=== PATIENT | male | born 1945 | race Caucasian/White ===

== ENCOUNTER → 2020-02-02 | Outpatient (REF) | payer OTHER ==
[2020-02-02 18:26] LABS: IRON (FE) 102 UG/DL (65-175); PERCENT SATURATION 37.1 % (19.7-50.0); TOTAL IRON BINDING CAPACITY 275 UG/DL (250-450); TOTAL PROTEIN 7.2 GM/DL (6.4-8.2)
[2020-02-02 18:37] LABS: FOLATE > 24.0 NG/ML; VITAMIN B12 LEVEL 426 PG/ML
[2020-02-07 12:51] LABS: ALBUMIN 4.39 GM/DL (3.29-5.55); ALPHA-1-GLOBULIN % 4.3 % (2.9-4.9); ALPHA-1-GLOBULINS 0.31 GM/DL (0.17-0.41); ALPHA-2-GLOBULINS 0.57 GM/DL (0.42-0.99); ALPHA-2-GLOBULINS % 7.9 % (7.1-11.8); BETA-1-GLOBULINS 0.34 GM/DL (0.28-0.60); BETA-1-GLOBULINS % 4.7 % (4.7-7.2); BETA-2-GLOBULINS 0.25 GM/DL (0.19-0.55); BETA-2-GLOBULINS % 3.5 % (3.2-6.5); GAMMA GLOBULIN % 18.6 % (11.1-18.8); GAMMA GLOBULINS 1.34 GM/DL (0.65-1.58)
[2020-02-07 13:09] LABS: IMMUNOTYPING SERUM IGG ABNORMAL (NORMAL); IMMUNOTYPING SERUM LAMBDA ABNORMAL (NORMAL)
[2020-02-08 13:07] LABS: FREE KAPPA LIGHT CHAINS SERUM 10.6 mg/L (3.3-19.4); FREE LAMBDA LIGHT CHAINS SERUM 143.5 mg/L (5.7-26.3); KAPPA/LAMBDA RATIO SERUM 0.07 (0.26-1.65)
== END ==
LOC: M LAB REF 17:08
PROVIDERS: ATTEND Internal Medicine Nephrology
DX: D64.9 Anemia, unspecified (principal)

== ENCOUNTER → 2020-04-05 | Outpatient (REF) | payer OTHER ==
[~2020-04-05] MED LIST: FLAX100012 PO; FOLI1TAB11 PO; LISI-538 PO; LOPR1TAB6 PO; PANT40TA29 PO; RA T500C2 PO; VITMTA PO
[2020-04-07 05:07] LABS: FREE KAPPA LIGHT CHAINS URINE 24.39 mg/L (0.63-113.79); FREE LAMBDA LIGHT CHAINS URINE 12.91 mg/L (0.47-11.77); KAPPA/LAMBDA RATIO URINE 1.89 (1.03-31.76)
== END ==
LOC: M LAB REF 11:29
PROVIDERS: ATTEND Specialist
DX: D47.2 Monoclonal gammopathy (principal)

== ENCOUNTER → 2020-06-04 | Outpatient (REF) | payer OTHER ==
[~2020-06-04] MED LIST changes: -LISI-538 PO; +LISI20TA33 PO
[2020-06-05 18:05] LABS: COMPLEMENT C3 106 MG/DL (90-180); COMPLEMENT C4 16 MG/DL (10-40)
[2020-06-05 18:16] LABS: HEPATITIS B SURFACE ANTIBODY NEGATIVE (POSITIVE)
[2020-06-05 18:27] LABS: HEPATITIS B SURFACE ANTIGEN NEGATIVE (NEGATIVE)
[2020-06-05 18:54] LABS: HEPATITIS C VIRUS ABY INDEX 0.1 INDEX (<0.8)
[2020-06-05 18:55] LABS: HEPATITIS B CORE ANTIBODY IGM NEGATIVE (NEGATIVE)
== END ==
LOC: M LAB REF 16:39
PROVIDERS: ATTEND Internal Medicine Nephrology
DX: R80.9 Proteinuria, unspecified (principal)

== ENCOUNTER → 2020-06-07 | Outpatient (REF) | payer OTHER ==
[2020-06-12 16:08] LABS: ANCA-ATYPICAL <1:20 titer (Neg:<1:20); ANTI DS-DNA AB Negative (Negative); ANTI-GLOMERULAR BASEMENT MEMB 6 units (0-20); ANTINUCLEAR ANTIBODIES DIRECT Negative (Negative); CYTOPLASMIC NEUTROP AB ANCA-C <1:20 titer (Neg:<1:20); PERINUCLEAR AB ANCA-P <1:20 titer (Neg:<1:20)
== END ==
LOC: M LAB REF 17:05
PROVIDERS: ATTEND Internal Medicine Nephrology
DX: R80.9 Proteinuria, unspecified (principal)

== ENCOUNTER → 2021-01-07 | Outpatient (REF) | payer OTHER ==
[~2021-01-07] MED LIST changes: +SELE100T PO; +ZINC1TAB2 PO
== END ==
LOC: M LAB REF 16:40
PROVIDERS: ATTEND Internal Medicine Nephrology
DX: N18.2 Chronic kidney disease, stage 2 (mild) (principal)

== ENCOUNTER → 2021-03-04 | Outpatient (CLI) | payer OTHER | LOC: M PLAIMG 10:45 | PROVIDERS: ATTEND Nurse Practitioner | DX: I71.4 Abdominal aortic aneurysm, without rupture (principal) ==

== ENCOUNTER → 2021-06-17 | Outpatient (REF) | payer OTHER | LOC: M LAB REF 16:44 | PROVIDERS: ATTEND Nurse Practitioner Family | DX: N18.31 Chronic kidney disease, stage 3a (principal) ==

== ENCOUNTER 2022-01-03 14:53 | Emergency (ER) | payer MEDICARE, OTHER ==
[~2022-01-03] VITALS: Ht 170.2 cm; Wt 94.5 kg
[2022-01-03 16:30] LABS: BASO % 0.1 % (0.0-1.0); EOS % 0.1 % (0.0-3.0); HEMATOCRIT 41.2 % (42.0-52.0); HEMOGLOBIN 13.4 g/dl (13.5-17.5); LYMPH # 0.4 10^3/uL (1.5-5.0); LYMPH % 3.4 % (24.0-44.0); MEAN CORPUSCULAR HEMOGLOBIN 34.6 pg (27.0-33.0); MEAN CORPUSCULAR HGB CONC 32.5 g/dl (32.0-36.5); MEAN CORPUSCULAR VOLUME 106.5 fl (80.0-96.0); MONO # 0.2 10^3/uL (0.0-0.8); MONO % 2.1 % (2.0-8.0); NEUTROPHILS # 9.6 10^3/uL (1.5-8.5); NEUTROPHILS % 93.1 % (36.0-66.0); PLATELET COUNT, AUTOMATED 194 10^3/uL (150-450); RED BLOOD COUNT 3.87 10^6/uL (4.30-6.10); WHITE BLOOD COUNT 10.3 10^3/uL (4.0-10.0)
[2022-01-03 16:46] LABS: CK-MB VALUE MASS 1.7 NG/ML (<3.6); MB/CK RELATIVE INDEX 2.93 (< OR =4)
[2022-01-03 16:51] LABS: ALBUMIN 3.6 GM/DL (3.2-5.2); ALT/SGPT 48 U/L (12-78); BILIRUBIN,DIRECT < 0.1 MG/DL (0.0-0.2); BILIRUBIN,TOTAL 0.4 MG/DL (0.2-1.0); BLOOD UREA NITROGEN 26 MG/DL (7-18); CALCIUM LEVEL 8.8 MG/DL (8.8-10.2); CARBON DIOXIDE LEVEL 27 MEQ/L (21-32); CHLORIDE LEVEL 106 MEQ/L (98-107); CREATININE FOR GFR 1.07 MG/DL (0.70-1.30); FREE T4 1.04 NG/DL (0.76-1.46); GLOMERULAR FILTRATION RATE > 60.0 (>42); GLUCOSE, FASTING 153 MG/DL (70-100); LIPASE 201 U/L (73-393); NT-PRO BNP 504 PG/ML (<125); POTASSIUM SERUM 4.4 MEQ/L (3.5-5.1); SODIUM LEVEL 138 MEQ/L (136-145); THYROID STIMULATING HORMONE 0.443 uIU/ML (0.358-3.740); TOTAL PROTEIN 6.9 GM/DL (6.4-8.2)
[2022-01-03 18:56] LABS: CK-MB VALUE MASS 1.5 NG/ML (<3.6); MB/CK RELATIVE INDEX 2.42 (< OR =4)
[2022-01-03 22:00] VITALS: BP 176/83
== END 2022-01-03 22:12 | disposition home or self-care (01) ==
LOC: M ED 14:53
DX: R00.2 Palpitations (principal); I49.5 Sick sinus syndrome; I10 Essential (primary) hypertension; Z95.0 Presence of cardiac pacemaker; Z79.899 Other long term (current) drug therapy

== ENCOUNTER → 2022-01-13 | Outpatient (REF) | LOC: M RAD 14:05 | PROVIDERS: ATTEND Physician Assistant Medical | DX: R05.9 Cough, unspecified (principal) ==

== ENCOUNTER → 2022-03-21 | Outpatient (CLI) | payer OTHER ==
[~2022-03-21] MED LIST changes: +AMLO1TAB24; +ATRO1OPD; +B COCAP4 PO; +BRIM0.2S13; +DORZ2SOL4; +EXCETAB32 PO; +METO1TAB7; +NOXI1TAB PO; +PRED10TA2; +PRED1SUS2; +PRED20TA; +VITA400T26 PO; +VITA500C24 PO
== END ==
LOC: M PLAIMG 11:27
PROVIDERS: ATTEND Internal Medicine Cardiovascular Disease
DX: R06.02 Shortness of breath (principal)

== ENCOUNTER → 2022-04-24 | Outpatient (CLI) | payer MEDICARE, OTHER | LOC: M RAD 12:39 | PROVIDERS: ATTEND Internal Medicine Critical Care Medicine | DX: I82.812 Embolism and thrombosis of superficial veins of left lower extremity (principal); R22.40 Localized swelling, mass and lump, unspecified lower limb ==

== ENCOUNTER → 2022-06-16 | Outpatient (REF) | payer OTHER ==
[~2022-06-16] MED LIST changes: +ALBU8.5H; +CHEL50TA3 PO; +EXCETAB44 PO; +IRON325T9 PO; +METH2.5T48; +TURM500T PO; +VALT500T
== END ==
LOC: M LAB REF 17:40
PROVIDERS: ATTEND Internal Medicine Nephrology
DX: C90.00 Multiple myeloma not having achieved remission (principal)

== ENCOUNTER → 2022-09-25 | Outpatient (CLI) | payer MEDICARE, OTHER ==
[~2022-09-25] MED LIST changes: -ATRO1OPD; +ATRO2DRO4
== END ==
LOC: M PLAIMG 12:59
PROVIDERS: ATTEND Nurse Practitioner
DX: C90.00 Multiple myeloma not having achieved remission (principal)
CPT/HCPCS: 77075; G0463

== ENCOUNTER → 2022-12-23 | Outpatient (REF) | payer OTHER | LOC: M SFHCRHEU 12:41 | PROVIDERS: ATTEND Internal Medicine Rheumatology | DX: M06.09 Rheumatoid arthritis without rheumatoid factor, multiple sites (principal); Z79.899 Other long term (current) drug therapy; H20.9 Unspecified iridocyclitis; M15.9 Polyosteoarthritis, unspecified ==

== ENCOUNTER → 2023-01-05 | Outpatient (REF) | payer OTHER | LOC: M LAB REF 11:05 | PROVIDERS: ATTEND Nurse Practitioner | DX: C90.00 Multiple myeloma not having achieved remission (principal); D47.2 Monoclonal gammopathy; Z79.899 Other long term (current) drug therapy ==

== ENCOUNTER → 2023-01-19 | Outpatient (CLI) | payer MEDICARE, OTHER | LOC: M SLEEP 20:00 | PROVIDERS: ATTEND Physician Assistant Medical | DX: G47.33 Obstructive sleep apnea (adult) (pediatric) (principal) ==

== ENCOUNTER 2023-03-26 06:23 | Day surgery (SDC) | payer MEDICARE, OTHER ==
[~2023-03-26] VITALS: Ht 167.6 cm; Wt 94.7 kg
[~2023-03-26 06:23] MED LIST changes: -ALBU8.5H; +ALBU8.5H INH; +BSS IRRIG/VANCO(10MG)/TOBRA(5MG)/EPINEPH(1:1000-0.5CC)500ML BAG-ORONLY IR ONE; +CYCLOPENTOLATE 1% OPHTH SOLN 2ML BTL OD SCH; +LIDOCAINE 3.5 % 1ML OPHTH TOPICAL GEL OU ONE; -METH2.5T48; +METH2.5T48 PO; +OFLOXACIN 0.3 % (OCUFLOX) OPTH SOL 5ML OD ONE; +PHENYLEPHRINE 10% OPHTH SOL 5ML OD PRN; +PHENYLEPHRINE 2.5% OPHTH SOL 2ML OD SCH; -PRED1SUS2; +PRED1SUS2 OD; +TROPICAMIDE 1% OPHTH SOLN 15ML OD SCH; -VALT500T; +VALT500T PO
[2023-03-26] MEDS ORDERED: fentaNYL 100 MCG/2 ML INJECTION As Ordered ONE (07:11)
[2023-03-26] MEDS ORDERED: MIDAZOLAM INJ 2MG/2ML VIAL As Ordered ONE (07:12)
[2023-03-26] MEDS ORDERED: ceFAZolin 1GM VIAL As Ordered ONE (08:21)
[2023-03-26] MEDS ORDERED: CEFUROXIME 1MG/0.1ML INTRACAMERAL INJ As Ordered ONE (08:24)
[2023-03-26] MEDS ORDERED: TRYPAN BLUE 0.06 % 2.25 ML OPHTH SYR (VISIONBLUE) As Ordered ONE (08:41)
[2023-03-26] MEDS ORDERED: DUOVISC (0.50ML VISCOAT/0.85ML PROVISC) OPHTH KIT As Ordered ONE (08:43)
[2023-03-26] MEDS ORDERED: hydrALAZINE 20MG/ML 1ML VIAL As Ordered ONE (08:44)
[2023-03-26 09:00] VITALS: BP 170/82; TEMP 97.9; O2SAT 96
[2023-03-26] MEDS ORDERED: DESFLURANE 240 ML INHALANT As Ordered ONE (15:42)
[2023-03-26] MEDS ORDERED: SEVOFLURANE INHAL SOLN 250 ML BTL As Ordered ONE (15:44)
== END 2023-03-26 09:20 | disposition home or self-care (01) ==
LOC: M SDC 06:23
PROVIDERS: ATTEND Ophthalmology
DX: H25.11 Age-related nuclear cataract, right eye (principal); H57.03 Miosis; I12.9 Hypertensive chronic kidney disease with stage 1 through stage 4 chronic kidney disease, or unspecified chronic kidney disease; R00.1 Bradycardia, unspecified; Z95.0 Presence of cardiac pacemaker; N18.30 Chronic kidney disease, stage 3 unspecified; Z79.899 Other long term (current) drug therapy
CPT/HCPCS: 66982; J0360; J0690; J0697; J2250; J3010; V2632

== ENCOUNTER → 2023-04-24 | Outpatient (CLI) | payer MEDICARE, OTHER ==
[~2023-04-24] MED LIST changes: -BSS IRRIG/VANCO(10MG)/TOBRA(5MG)/EPINEPH(1:1000-0.5CC)500ML BAG-ORONLY IR ONE; -CYCLOPENTOLATE 1% OPHTH SOLN 2ML BTL OD SCH; +FERR325T3 PO; +ISOVUE-370 76% 100ML VIAL ONE; -LIDOCAINE 3.5 % 1ML OPHTH TOPICAL GEL OU ONE; -OFLOXACIN 0.3 % (OCUFLOX) OPTH SOL 5ML OD ONE; -PHENYLEPHRINE 10% OPHTH SOL 5ML OD PRN; -PHENYLEPHRINE 2.5% OPHTH SOL 2ML OD SCH; -TROPICAMIDE 1% OPHTH SOLN 15ML OD SCH
== END ==
LOC: M PLAIMG 12:22
PROVIDERS: ATTEND Internal Medicine Medical Oncology
DX: M54.2 Cervicalgia (principal)
CPT/HCPCS: 70460; 72126; 73201; Q9967

== ENCOUNTER 2023-05-07 11:00 | Day surgery (SDC) | payer MEDICARE, OTHER ==
[~2023-05-07] VITALS: Ht 167.6 cm; Wt 93.4 kg
[~2023-05-07 11:00] MED LIST changes: +BSS IRRIG/VANCO(10MG)/TOBRA(5MG)/EPINEPH(1:1000-0.5CC)500ML BAG-ORONLY IR ONE; +CEFUROXIME 1MG/0.1ML INTRACAMERAL INJ As Ordered ONE; +CYCLOPENTOLATE 1% OPHTH SOLN 2ML BTL OS SCH; -ISOVUE-370 76% 100ML VIAL ONE; +LIDOCAINE 1% SDV 5ML VIAL As Ordered ONE; +LIDOCAINE 3.5 % 1ML OPHTH TOPICAL GEL OU ONE; +MIDAZOLAM INJ 2MG/2ML VIAL As Ordered ONE; +OFLOXACIN 0.3 % (OCUFLOX) OPTH SOL 5ML OS ONE; +PHENYLEPHRINE 10% OPHTH SOL 5ML OS PRN; +PHENYLEPHRINE 2.5% OPHTH SOL 2ML OS SCH; +TROPICAMIDE 1% OPHTH SOLN 15ML OS SCH; +fentaNYL 100 MCG/2 ML INJECTION As Ordered ONE
[2023-05-07] MEDS ORDERED: ACETAMINOPHEN 500 MG TAB PO ONE (11:45)
[2023-05-07 12:25] VITALS: BP 177/93; TEMP 97.8; O2SAT 93
== END 2023-05-07 12:51 | disposition home or self-care (01) ==
LOC: M SDC 11:00
PROVIDERS: ATTEND Ophthalmology
DX: H25.12 Age-related nuclear cataract, left eye (principal); I12.9 Hypertensive chronic kidney disease with stage 1 through stage 4 chronic kidney disease, or unspecified chronic kidney disease; N18.30 Chronic kidney disease, stage 3 unspecified; Z95.0 Presence of cardiac pacemaker; Z79.899 Other long term (current) drug therapy; D63.1 Anemia in chronic kidney disease
CPT/HCPCS: 66984; J0697; J2250; J3010; V2632

== ENCOUNTER → 2023-10-26 | Outpatient (CLI) | payer OTHER, MEDICARE ==
[~2023-10-26] MED LIST changes: -BSS IRRIG/VANCO(10MG)/TOBRA(5MG)/EPINEPH(1:1000-0.5CC)500ML BAG-ORONLY IR ONE; -CEFUROXIME 1MG/0.1ML INTRACAMERAL INJ As Ordered ONE; -CYCLOPENTOLATE 1% OPHTH SOLN 2ML BTL OS SCH; +FERR325T14 PO; -IRON325T9 PO; -LIDOCAINE 1% SDV 5ML VIAL As Ordered ONE; -LIDOCAINE 3.5 % 1ML OPHTH TOPICAL GEL OU ONE; -MIDAZOLAM INJ 2MG/2ML VIAL As Ordered ONE; -OFLOXACIN 0.3 % (OCUFLOX) OPTH SOL 5ML OS ONE; -PHENYLEPHRINE 10% OPHTH SOL 5ML OS PRN; -PHENYLEPHRINE 2.5% OPHTH SOL 2ML OS SCH; +TIMO0.5S20; -TROPICAMIDE 1% OPHTH SOLN 15ML OS SCH; -fentaNYL 100 MCG/2 ML INJECTION As Ordered ONE
== END ==
LOC: M PLARAD 10:14
PROVIDERS: ATTEND Internal Medicine Medical Oncology
DX: D47.2 Monoclonal gammopathy (principal)
CPT/HCPCS: 78815; A9552

== ENCOUNTER → 2023-11-25 | Outpatient (CLI) | payer MEDICARE, OTHER ==
[~2023-11-25] MED LIST changes: +BISO5TAB14; +HYDR12.55
== END ==
LOC: M CARPUL 10:36
PROVIDERS: ATTEND Internal Medicine Critical Care Medicine
DX: R06.00 Dyspnea, unspecified (principal)

== ENCOUNTER → 2024-04-26 | Outpatient (REF) | payer OTHER ==
[~2024-04-26] MED LIST changes: +ACET-1599 PO; -EXCETAB44 PO
[2024-04-26 19:08] LABS: TOTAL PROTEIN,RANDOM URINE 56.3 MG/DL (0.0-14.0)
[2024-04-26 19:13] LABS: CREATININE,RANDOM URINE 124.5 MG/DL
== END ==
LOC: M LAB REF 17:14
PROVIDERS: ATTEND Internal Medicine Nephrology
DX: R80.9 Proteinuria, unspecified (principal)

== ENCOUNTER → 2024-06-22 | Outpatient (CLI) | payer MEDICARE, OTHER | LOC: M PLAIMG 12:20 | PROVIDERS: ATTEND Internal Medicine Critical Care Medicine | DX: R91.8 Other nonspecific abnormal finding of lung field (principal) ==

== ENCOUNTER → 2024-06-24 | Outpatient (REF) | payer OTHER, MEDICARE | LOC: M LAB REF 17:16 | PROVIDERS: ATTEND Physician Assistant | DX: Z95.0 Presence of cardiac pacemaker (principal) ==

== ENCOUNTER 2024-06-29 10:20 | Day surgery (SDC) | payer OTHER, MEDICARE ==
[~2024-06-29] VITALS: Ht 167.6 cm; Wt 95.7 kg
[~2024-06-29 10:20] MED LIST changes: -BISO5TAB14; +BISO5TAB14 PO; -HYDR12.55; +HYDR12.55 PO; +IRON65TA2 PO; +LENA25CA PO; +LOSA50TA28 PO; -TIMO0.5S20; +TIMO0.5S20 OD
[2024-06-29] MEDS ORDERED: propofoL 200 MG/20 ML VIAL As Ordered ONE (11:37)
[2024-06-29] MEDS ORDERED: fentaNYL 100 MCG/2 ML INJECTION As Ordered ONE (11:37)
[2024-06-29] MEDS ORDERED: MIDAZOLAM INJ 2MG/2ML VIAL As Ordered ONE (11:37)
[2024-06-29] MEDS ORDERED: KETOROLAC 60MG 2ML VIAL As Ordered ONE (11:37)
[2024-06-29] MEDS: ceFAZolin SOD 2 GM IV ONCE IV ONE (11:40)
[2024-06-29] MEDS: LIDOCAINE 1% SDV 30ML VIAL As Ordered ONE (11:50)
[2024-06-29] MEDS ORDERED: hydrALAZINE 20MG/ML 1ML VIAL As Ordered ONE (11:55)
[2024-06-29] MEDS ORDERED: ACETAMINOPHEN 1000MG/100ML IV BAG As Ordered ONE (12:01)
[2024-06-29] MEDS: ISOVUE-300 61% 100ML VIAL As Ordered ONE (12:02)
[2024-06-29] MEDS: AMIODARONE 150MG/3ML VIAL As Ordered ONE (12:02)
[2024-06-29] MEDS: ceFAZolin 1GM VIAL As Ordered ONE (12:03)
[2024-06-29 13:10] VITALS: BP 166/80; TEMP 98; O2SAT 99
== END 2024-06-29 13:25 | disposition home or self-care (01) ==
LOC: M SDC 10:20
PROVIDERS: ATTEND Internal Medicine Cardiovascular Disease
DX: Z45.010 Encounter for checking and testing of cardiac pacemaker pulse generator [battery] (principal); Y71.2 Prosthetic and other implants, materials and accessory cardiovascular devices associated with adverse incidents; I49.5 Sick sinus syndrome; R06.83 Snoring; N28.9 Disorder of kidney and ureter, unspecified; Z79.899 Other long term (current) drug therapy
CPT/HCPCS: 33228; C1785; J0131; J0360; J0690; J1885; J2250; J3010

== ENCOUNTER → 2024-08-25 | Outpatient (CLI) | payer OTHER, MEDICARE ==
[~2024-08-25] MED LIST changes: +ACYC1TAB PO; +REVL20CA PO; +REVL25CA PO
== END ==
LOC: M PLAIMG 10:20
PROVIDERS: ATTEND Internal Medicine Cardiovascular Disease
DX: I71.21 Aneurysm of the ascending aorta, without rupture (principal); I35.1 Nonrheumatic aortic (valve) insufficiency

== ENCOUNTER → 2024-11-21 | Outpatient (CLI) | payer OTHER ==
[~2024-11-21] MED LIST changes: +ACYC-438 PO; -ACYC1TAB PO; +ATOR1TAB21; +DEXA4TA PO; +ELIQ5TAB PO; +HYDR-3490 PO; +OXYC-517 PO; +POTA-151; -RA T500C2 PO; +REVL10CA2 PO; +TURM500C10 PO
== END ==
LOC: M RAD 10:31
PROVIDERS: ATTEND Specialist
DX: I82.511 Chronic embolism and thrombosis of right femoral vein (principal)

== ENCOUNTER → 2024-12-09 | Outpatient (CLI) | payer OTHER, MEDICARE | LOC: M RAD 13:27 | PROVIDERS: ATTEND Internal Medicine Hematology & Oncology | DX: I70.203 Unspecified atherosclerosis of native arteries of extremities, bilateral legs (principal) ==

== ENCOUNTER → 2024-12-13 | Outpatient (CLI) | payer OTHER, MEDICARE ==
[~2024-12-13] MED LIST changes: +CARDIAC STRESS TEST RESCUE BOX 1 KIT EA XX ONE; +LIDOCAINE 1% MDV 20 ML VIAL SC SCH
[2024-12-13 12:35] VITALS: TEMP 97.3
[2024-12-13 13:09] LABS: BASO # 0.0 10^3/uL (0.0-0.2); BASO % 0.4 % (0.0-1.0); EOS # 0.2 10^3/uL (0.0-0.5); EOS % 3.1 % (0.0-3.0); LYMPH # 0.5 10^3/uL (1.5-5.0); LYMPH % 9.4 % (24.0-44.0); MONO # 0.8 10^3/uL (0.0-0.8); MONO % 15.1 % (2.0-8.0); NEUTROPHILS # 3.6 10^3/uL (1.5-8.5); NEUTROPHILS % 71.6 % (36.0-66.0); PLATELET COUNT, AUTOMATED 195 10^3/uL (150-450)
[2024-12-13 13:52] VITALS: BP 121/64; O2SAT 98
== END ==
LOC: M IRPRO 12:09
PROVIDERS: ATTEND Internal Medicine Medical Oncology
DX: C90.00 Multiple myeloma not having achieved remission (principal)

== ENCOUNTER → 2025-01-05 | Outpatient (CLI) | payer MEDICARE, OTHER ==
[~2025-01-05] MED LIST changes: -CARDIAC STRESS TEST RESCUE BOX 1 KIT EA XX ONE; -LIDOCAINE 1% MDV 20 ML VIAL SC SCH
== END ==
LOC: M RAD 07:00
DX: R74.01 Elevation of levels of liver transaminase levels (principal)

== ENCOUNTER → 2025-03-30 | Outpatient (CLI) | payer OTHER, MEDICARE ==
[~2025-03-30] MED LIST changes: -FLAX100012 PO; +FLAX10003 PO; +ISOVUE-370 76% 100 ML VIAL As Ordered ONE
== END ==
LOC: M RAD 12:55
DX: M54.50 Low back pain, unspecified (principal); D47.2 Monoclonal gammopathy; N20.0 Calculus of kidney; N28.1 Cyst of kidney, acquired; I70.1 Atherosclerosis of renal artery; K57.90 Diverticulosis of intestine, part unspecified, without perforation or abscess without bleeding; M85.89 Other specified disorders of bone density and structure, multiple sites